=== PATIENT | female | born 2000 | race Caucasian/White ===

== ENCOUNTER 2021-01-31 21:54 | Emergency (ER) | payer SELFPAY ==
[2021-01-31 22:49] LABS: Bilirubin Neg (Negative); Blood, Urine Negative (Negative); Clarity Clear (Clear); Glucose, Urine (Dipstick) Normal (Negative); Ketone, Urine Negative (Negative); Leukocyte 500 (Negative); Nitrite Negative (Negative); Protein, Urine (Dipstick) 30 mg/dl (Neg-Trace); Urobilinogen Normal mg/dL (Less than 2)
[2021-01-31 22:50] LABS: #Eosinphils 0.1 10x3/uL (0.0-0.5); #Monocytes 0.7 10x3/uL (0.0-1.1); #Neutrophils 3.8 10x3/uL (1.5-8.4); %Basophils 0.4 % (0.0-2.0); %Eosinophils 0.7 % (0.0-6.0); %Lymphocytes 31.6 % (18.0-47.0); %Monocytes 10.7 % (0.0-10.0); %Neutrophils 56.3 % (40.0-75.0); Hemoglobin 11.6 g/dL (12.0-15.5); Mean Corpuscular HGB CONC 32.4 g/dL (32.0-36.0); Mean Corpuscular Hemoglobin 29.5 pg (27.0-33.0); Mean Corpuscular Volume 91.1 fl (81.6-98.3); Mean Platelet Volume 10.6 fl (7.4-10.4); Platelet Count 234 10x3/uL (150-450); RBC Distribution Width 13.7 % (11.5-14.5); Red Blood Cell (RBC) Count 3.93 10x6/uL (3.90-5.03); White Blood Cell (WBC) Count 6.8 10x3/uL (3.5-10.5)
[2021-01-31 23:14] LABS: Bacteria/HPF 2+ HPF (None Seen)
[2021-01-31 23:15] LABS: Mucous/LPF 2+ LPF (<2+); Yeast-Budding Rare HPF (None Seen)
== END 2021-02-01 00:26 | disposition home or self-care (01) ==
LOC: CSHERS 21:54
DX: O23.41 Unspecified infection of urinary tract in pregnancy, first trimester (principal); N39.0 Urinary tract infection, site not specified; Z3A.01 Less than 8 weeks gestation of pregnancy
CPT/HCPCS: 76856; 81003; 81015; 84702; 85025; 86900; 86901

== ENCOUNTER 2021-06-18 18:33 | Day surgery (SDC) | payer BC, SELFPAY ==
[2021-06-18 19:04] VITALS: BMI 20.3
[2021-06-18] MEDS ORDERED: hydrALAZINE 20 MG/ML VIAL SLOW IVP PRN (20:03)
[2021-06-18 20:29] LABS: Bilirubin Neg (Negative); Blood, Urine 250 (Negative); Clarity Clear (Clear); Glucose, Urine (Dipstick) Normal (Negative); Ketone, Urine Negative (Negative); Leukocyte Negative (Negative); Nitrite Negative (Negative); Protein, Urine (Dipstick) Negative (Neg-Trace); Urobilinogen Normal mg/dL (Less than 2)
[2021-06-18 20:36] LABS: Bacteria/HPF 2+ HPF (None Seen); Squamous Epithelial 0-3 HPF (0-3); WBC/HPF 0-3 HPF (0-3)
[2021-06-18] MEDS ORDERED: cefTRIAXone\\ROCEPHIN 1 GM VIAL IM SCH (21:00)
[2021-06-18] MEDS ORDERED: Lidocaine 1% (PF) 30 ML VIAL ONE (21:12)
== END 2021-06-18 21:29 | disposition home or self-care (01) ==
LOC: CSHLD/OP 18:33
PROVIDERS: ATTEND Obstetrics & Gynecology
DX: O23.02 Infections of kidney in pregnancy, second trimester (principal); Z3A.24 24 weeks gestation of pregnancy; Z88.0 Allergy status to penicillin
CPT/HCPCS: 81001; 87086; J0696; J2001